=== PATIENT | female | born 1980 | race Caucasian/White ===

== ENCOUNTER 2016-12-03 16:55 | Emergency (ER) | payer MEDICAID, OTHER ==
[~2016-12-03] VITALS: Ht 165.1 cm; Wt 94.1 kg
[~2016-12-03 16:55] MED LIST: ACET500T76 PO; CHOL5000 PO; GABA600T2 PO; LORA10TA75 PO; MONT10TA9 PO; NORT10CA PO; PROP120C3 PO; PSEU120T44 PO; RANI150T4 PO; SERT100T5 PO
[2016-12-03 17:55] LABS: BLOOD UREA NITROGEN 13 mg/dL (7-18)
[2016-12-03 18:00] LABS: ASPARTATE AMINO TRANSFERASE 16 U/L (15-37)
[2016-12-03] MEDS ORDERED: ACETAMINOPHEN 500 MG TABLET ONE (18:26)
[2016-12-03] MEDS ORDERED: KETOROLAC 30 MG/1 ML ONE (18:26)
[2016-12-03] MEDS ORDERED: ACETAMINOPHEN 500 MG TABLET PO ONE (18:30)
[2016-12-03] MEDS ORDERED: KETOROLAC 30 MG/1 ML IVPush ONE (18:30)
[2016-12-03] MEDS ORDERED: SODIUM CHLORIDE 0.9% 1,000ML IVBOLUS ONE (18:30)
[2016-12-03] MEDS ORDERED: OMNIPAQUE 350 MG/ML, 100ML BOTTLE ONE (19:21)
[2016-12-03 21:47] VITALS: BP 118/76
== END 2016-12-03 21:49 | disposition home or self-care (01) ==
LOC: ED 20:42
DX: R55 Syncope and collapse (principal); R51 Headache; M54.2 Cervicalgia; R10.32 Left lower quadrant pain
CPT/HCPCS: 36415; 70450; 71275; 72125; 80053; 81001; 83690; 84703; 85025; 85379; 93005; 96361; 96374; 99285; J1885; J7030; Q9967

== ENCOUNTER 2017-05-21 00:46 | Emergency (ER) | payer MEDICAID, OTHER ==
[~2017-05-21] VITALS: Ht 165.1 cm; Wt 90.0 kg
[~2017-05-21 00:46] MED LIST changes: +ACET500T71 PO; -ACET500T76 PO
[2017-05-21 01:39] LABS: HEMATOCRIT 40.5 % (34.6-47.8); HEMOGLOBIN 13.5 g/dL (11.7-16.4); WHITE BLOOD COUNT 9.8 x10^3/uL (3.4-10)
[2017-05-21 02:01] LABS: ASPARTATE AMINO TRANSFERASE 12 U/L (15-37); BLOOD UREA NITROGEN 18 mg/dL (7-18)
[2017-05-21 02:13] LABS: DAU SCREEN DISCLAIMER
[2017-05-21 02:19] LABS: ACETAMINOPHEN < 2 mcg/mL (10-30)
[2017-05-21 02:36] VITALS: BP 137/77
== END 2017-05-21 03:29 | disposition home or self-care (01) ==
LOC: ED 03:15
DX: S06.0X9A Concussion with loss of consciousness of unspecified duration, initial encounter (principal); R41.3 Other amnesia; R55 Syncope and collapse; W19.XXXA Unspecified fall, initial encounter; Y93.89 Activity, other specified; Y92.89 Other specified places as the place of occurrence of the external cause; Y99.8 Other external cause status
CPT/HCPCS: 36415; 70450; 80053; 80307; 80329; 81003; 84703; 85025; 93005; 99285; G0479; G0480

== ENCOUNTER 2019-02-20 01:20 | Emergency (ER) | payer MEDICAID ==
[~2019-02-20 01:20] MED LIST changes: -GABA600T2 PO; +GABA600T7 PO; +PSEU120T10 PO; -PSEU120T44 PO; +SERT100T32 PO; -SERT100T5 PO
[2019-02-20] MEDS ORDERED: HYDROmorphone 2 MG/ML, 1ML IVPush STA (02:06)
[2019-02-20] MEDS ORDERED: KETOROLAC 30 MG/1 ML ONE (02:18)
[2019-02-20] MEDS ORDERED: ONDANSETRON 2MG/ML, 2ML ONE (02:18)
[2019-02-20] MEDS ORDERED: HYDROmorphone 1 MG/ML, 1ML VIAL ONE ×2 (02:19→05:34)
[2019-02-20] MEDS ORDERED: KETOROLAC 30 MG/1 ML IVPush ONE (02:30)
[2019-02-20] MEDS ORDERED: SODIUM CHLORIDE FLUSH 10ML SYR IVF ONE (02:30)
[2019-02-20] MEDS ORDERED: ONDANSETRON 2MG/ML, 2ML IVPush ONE (02:30)
[2019-02-20 02:38] LABS: BASOPHILS # (AUTO) 0.09 x10^3/uL (0-0.1); BASOPHILS % (AUTO) 1 % (0-1); EOSINOPHILS # (AUTO) 0.07 x10^3/uL (0-0.4); EOSINOPHILS % (AUTO) 1 % (1-7); LYMPHOCYTES # (AUTO) 3.21 x10^3/uL (1-3.4); LYMPHOCYTES % (AUTO) 34 % (22-44); MD NO; MEAN CORPUSCULAR HEMOGLOBIN 30.3 pg (27.0-34.8); MEAN CORPUSCULAR HGB CONC 33.4 g/dL (32.4-35.8); MEAN CORPUSCULAR VOLUME 90.7 fL (80-100); MEAN PLATELET VOLUME 7.3 fL (7.4-10.4); MONOCYTES # (AUTO) 0.64 x10^3/uL (0.2-0.8); MONOCYTES % (AUTO) 7 % (2-9); NEUTROPHILS # (AUTO) 5.39 x10^3/uL (1.8-6.8); NEUTROPHILS % (AUTO) 57 % (42-75); PLATELET COUNT 283 x10^3/uL (130-400); RED BLOOD COUNT 5.07 x10^6/uL (3.82-5.3); RED CELL DISTRIBUTION WIDTH 12.6 % (9.6-15.2)
[2019-02-20] MEDS ORDERED: CYCL5TAB PO (02:47)
[2019-02-20] MEDS ORDERED: NIFE30TA PO (02:47)
[2019-02-20 02:51] LABS: ALANINE AMINOTRANSFERASE 26 U/L (12-78); ALBUMIN 4.4 g/dL (3.4-5.0); ANION GAP 8 mmol/L (5-15); CALCIUM 9.7 mg/dL (8.5-10.1); CHLORIDE 107 mmol/L (98-107); CREATININE 1.02 mg/dL (0.55-1.02)
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
[2019-02-20 02:53] LABS: ALKALINE PHOSPHATASE 66 U/L (45-117); BILIRUBIN,TOTAL 0.3 mg/dL (0.2-1.0)
--- NOTE | 2019-02-20 02:55 | NUR ---
RECEIVED REPORT FROM JULISSA SILVER RN TO ASSUME CARE OF PT.
--- NOTE | 2019-02-20 03:16 | NUR ---
PT. AMBULATED DOWN HAMMOND TO BR WITH STEADY GAIT. ATTEMPTING TO PROVIDE UA AT THIS TIME.
[2019-02-20 03:29] LABS: MICROSCOPIC INDICATED
[2019-02-20 03:38] LABS: CULTURE INDICATED? YES
--- NOTE | 2019-02-20 04:46 | NUR ---
applied oxygen via nc 2 liters d/t sats 89-90% pt is resting but was able to awake family at bed side call light within reach
--- NOTE | 2019-02-20 05:11 | NUR ---
CALLED US ABOUT RESULTS NOT BEING POSTED YET. US CALLING [employer].
--- NOTE | 2019-02-20 05:36 | NUR ---
PT. C/O OF RETURN OF PAIN 05/08. DISCUSSED WITH DR. ALFREDO, NEW ORDERS RECEIVED.
--- NOTE | 2019-02-20 05:43 | NUR ---
CALLED US AGAIN TO ASK ABOUT RESULTS. RESULTS POSTED NOW.
--- NOTE | 2019-02-20 05:47 | NUR ---
DR. ALFREDO AT TO DISCUSS POC WITH PT. AND FAMILY.
[2019-02-20] MEDS ORDERED: HYDROmorphone 1 MG/ML, 1ML INJ IV ONE (06:00)
[2019-02-20 06:03] VITALS: BP 109/60
== END 2019-02-20 06:06 | disposition home or self-care (01) ==
LOC: ED 01:56
DX: K29.00 Acute gastritis without bleeding (principal); Z90.710 Acquired absence of both cervix and uterus
CPT/HCPCS: 36415; 76700; 80053; 81001; 83690; 85025; 87086; 96374; 96375; 96376; 99284; J1170; J1885; J2405

== ENCOUNTER 2020-12-13 19:44 | Emergency (ER) | payer MEDICAID ==
[~2020-12-13] VITALS: Ht 165.1 cm; Wt 101.0 kg
[~2020-12-13 19:44] MED LIST changes: +ACET500T64 PO; -ACET500T71 PO; +CYCL5TAB PO; +MONT10TA17 PO; -MONT10TA9 PO; +NIFE-31 PO; -PROP120C3 PO; +PROP120C50 PO
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
[2020-12-13] MEDS ORDERED: ACETAMINOPHEN 500 MG TABLET PO ONE (20:30)
--- NOTE | 2020-12-13 21:00 | NUR ---
PT WENT TO CT AND IS NOW BACK RESTING IN BED WITH AT BEDSIDE
[2020-12-13] MEDS ORDERED: ACETAMINOPHEN 500 MG TABLET ONE (21:17)
[2020-12-13] MEDS ORDERED: KETOROLAC 30 MG/1 ML ONE (22:23)
[2020-12-13] MEDS ORDERED: KETOROLAC 30 MG/1 ML IM ONE (22:30)
[2020-12-13 23:01] VITALS: BP 130/84
== END 2020-12-13 23:07 ==
LOC: ED 21:31
DX: S06.0X9A Concussion with loss of consciousness of unspecified duration, initial encounter (principal); R41.0 Disorientation, unspecified; X58.XXXA Exposure to other specified factors, initial encounter; Y93.89 Activity, other specified; Y92.89 Other specified places as the place of occurrence of the external cause; Y99.8 Other external cause status
CPT/HCPCS: 70450; 96372; 99285; J1885